=== PATIENT | male | born 2000 | race Caucasian/White ===

== ENCOUNTER 2018-07-05 14:09 | Outpatient (CLI) | payer OTHER, SELFPAY ==
[2018-07-06 12:21] LABS: HIV-1/2 Ag & Ab Screen Negative (NEGAT)
[2018-07-06 15:15] LABS: Chlamydia Result Negative; GC Result Negative; Specimen Description URINE
== END 2018-07-05 14:29 ==
PROVIDERS: PCP Pediatrics; Visit Provider Pediatrics
DX: R35.1 Nocturia (principal); N39.9 Disorder of urinary system, unspecified
CPT/HCPCS: 36415; 87389; 87491; 87591

== ENCOUNTER 2020-08-28 20:53 | Outpatient (REF) | payer OTHER, SELFPAY ==
[2020-08-28 20:55] LABS: HGB 14.6 g/dL (13.5-17.5); MCH 28.3 pg (27.0-33.0); MCHC 33.2 % (32.0-36.0); MCV 85.4 fL (80-95); MPV 10.8 fL (8.0-11.0); Platelet Count 246 10^3/uL (130-400); RBC 5.15 10^6/uL (4.36-5.78); RDW 12.2 % (11.8-14.1); RDW-SD 38.2 fL; WBC 5.79 10^3/uL (4.4-10.8)
[2020-08-28 21:35] LABS: ALT 24 U/L (16-63); AST 22 U/L (15-37); Albumin 4.7 g/dL (3.4-5.0); Alkaline Phosphatase 64 U/L (46-116); BUN 9 mg/dL (7-18); Bilirubin, Total 0.7 mg/dL (0.2-1.0); CREATININE 0.9 mg/dL (0.70-1.30); Calcium 9.1 mg/dL (8.5-10.1); Chloride 102 mmol/L (98-107); Glucose 86 mg/dL (74-106); Potassium 3.8 mmol/L (3.5-5.1); Sodium 140 mmol/L (136-145); TSH (W/Ref FT4) 1.16 uIU/mL (0.36-3.74); Total Protein 8.1 g/dL (6.4-8.2)
== END 2020-08-28 20:54 | disposition home or self-care (01) ==
LOC: NCHCN 20:53
PROVIDERS: Visit Provider Family Medicine
DX: F41.8 Other specified anxiety disorders (principal)
CPT/HCPCS: 80053; 85027; 84443

== ENCOUNTER 2022-02-08 16:53 | Outpatient (REF) | payer OTHER, SELFPAY ==
[2022-02-10 12:10] LABS: COVID-19 RT-PCR UVMMC Result Negative (Negative)
== END 2022-02-08 16:54 | disposition home or self-care (01) ==
LOC: NCHCN 16:53
PROVIDERS: Visit Provider Nurse Practitioner Family
DX: Z20.822 Contact with and (suspected) exposure to COVID-19 (principal); J02.9 Acute pharyngitis, unspecified
CPT/HCPCS: U0003

== ENCOUNTER 2023-06-04 22:10 | Emergency (ER) | payer OTHER, SELFPAY ==
[2023-06-04 22:13] VITALS: BP 128/58; PULSE 84; RESP 16; TEMP 36.6; O2SAT 100
--- NOTE | 2023-06-04 22:13 | ED.GENADUL_ITS ---
Discharge Plan Disposition Patient Disposition: Home Discharge Details Clinical Impression: Acute bacterial conjunctivitis of right eye Primary Care Provider: Unknown,Unknown ED Provider: Adin Luo Home Meds and New Rx's Prescriptions: New cyclopentolate 2 % drops 1 drp ophthalmic (eye) Q10M PRN3 Days Qty: 2 0RF moxifloxacin 0.5 % drops 1 drp ophthalmic (eye) TID 6 Days Qty: 3 0RF Rx Instructions: Please use drops every 2 hours, 2 drops each time for 2 days then every 6 hours 2 drops for 5 days No Action No Known Home Meds Discharge Instructions Instructions: Conjunctivitis (ED) Additional Instructions: You were seen in the emergency department for your eye pain. You received eyedrops which you should use 1 to 2 drops in your right eye every 2 hours for 2 days. Then use 1 to 2 drops every 6 hours for 5 days. A referral has been sent to the ophthalmology clinic at [facility] if you have worsening discomfort or you feel that your eyedrops are not working. Prescriptions for these antibiotic eyedrops have been sent to your pharmacy. There is also a prescription for a second drop which should improve your pain. If this drop is too expensive please disregard. Please return to the emergency department if you develop fevers with decreasing vision or have any other concerns. For your pain please take medications as follows: 1. Take acetaminophen (Tylenol), 1,000 mg (two 500 mg tabs) every 6 hours [2. Take ibuprofen (Advil), 400 mg every 6 hours.] HPI General Date/Time Provider Initiated Documentation: 06/04/23 22:13 . HPI Narrative: MDM This is an overall very well-appearing normothermic and not tachycardic 23-year-old contact lens wear with right eye conjunctivitis concerning for the possibility of bacterial conjunctivitis given recent URI symptoms last week for which patient will receive moxifloxacin drops given his contact lens use. No trauma to suggest corneal abrasion and no obvious uptake on fluorescein stain. Anterior chamber deep and quiet so my suspicion for iritis is exceedingly low. Furthermore patient has no history of autoimmune diseases. No signs of hyphema and no trauma. Negative Mell sign and given lack of trauma I have no suspicion for globe rupture. No new sexual partners to suggest chlamydial nor gonorrheal infection. No recent cataract surgery nor globe rupture nor foreign body to suggest endophthalmitis. No pain out of proportion to suggest necrotizing soft tissue infection. Based on patient's age and his anterior eye symptoms my suspicion for retinal detachment was exceedingly low as I did not complete a ocular ultrasound. I have asked health ammunition storekeeper Yumiko to have the patient seen by [facility] eye care in the next 1 to 2 days. Patient received his moxifloxacin drops in the ED. I have also sent drops to his pharmacy and have also sent a prescription for cyclopentolate to treat ciliary spasm. I advised ED return for any worsening pain decreasing vision or any other concerns. Otherwise we will proceed with an empiric trial of expectant outpatient management. Patient and I discussed refraining from contact lens use while treating his bacterial conjunctivitis. We also discussed good hand hygiene. Chronic conditions affecting the care of the patient: Contact lenses History obtained from an outside historian: N/A External record review: N/A Medications: Moxifloxacin drops, fluorescein, tetracaine Social determinants of health affecting disposition: N/A Management discussed with: N/A Treatment/interventions considered: N/A Response to therapies provided: N/A HPI This is a 23-year-old contact lens wearing male arrived to the emergency department via private vehicle in the setting of right eye irritation and d iscomfort that began this morning and progressively worsened throughout the day. Patient reports that he did not have any particular trauma to his eye. He has not been wearing his contact lenses today as a result of his discomfort. 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 He has tried flushing his eye tried warm compression and ice packs. These have not improved his symptoms. He denies any fevers. His eyes been watering but not itching. Patient reports that he had a URI I will week. He endorses photophobia. No prior history of similar symptoms. He does not have a history of autoimmune disease. No recent cataract surgeries. No new sexual partners. No recent ocular foreign bodies. Exam General: Mildly uncomfortable-appearing in no acute distress speaking in compl ete sentences. Head: Normocephalic, atraumatic. Eye:[Pupils equal, round reactive to light.] Extraocular eye movements intact. Right-sided conjunctival injection. No scleral icterus. On inspection right eye Lids and lashes appear intact with no signs of trauma. No uptake on fluorescein stain. On slit-lamp exam anterior chamber deep and quiet. No cells or flare. No hyphema. No obvious foreign body on eyelid eversion. Ear, nose, mouth, throat: Grossly normal inspection. Normal voice, handling secretions normally. Neck: Trachea midline. Cardiovascular: Well-perfused distal extremities. Respiratory: Nonlabored respiration. Gastrointestinal: Nondistended abdomen. Musculoskeletal: No edema. Moving all 4 extremities spontaneously. Skin: Normal for age and race, grossly normal temperature and turgor. No acute rash. Neurologic: Alert and appropriate, no apparent acute deficits. Psychiatric: Mood and manner are appropriate. Grooming and personal hygiene are appropriate. Related Data Home Medications Medication Instructions Recorded Confirmed Unknown [No Known Home Meds] 10/19/16 06/04/23 cyclopentolate 2 % eye drops 1 drp ophthalmic (eye) Q10M PRN 3 06/04/23 days #2 mL moxifloxacin 0.5 % eye drops 1 drp ophthalmic (eye) TID 6 days 06/04/23 #3 mL Previous Rx's Medication Instructions Recorded cyclopentolate 2 % eye drops 1 drp ophthalmic (eye) Q10M PRN 3 06/04/23 days #2 mL moxifloxacin 0.5 % eye drops 1 drp ophthalmic (eye) TID 6 days 06/04/23 #3 mL Allergies Allergy/AdvReac Type Severity Reaction Status Date / Time amoxicillin Allergy Intermediate hives Unverified 06/04/23 22:17 Sulfa (Sulfonamide Allergy Intermediate hives/rash Unverified 06/04/23 22:17 Antibiotics) Medical Decision Making Quality:SDOH Health Related Social Needs: No Data to Display PFSH All Active Problems (Updated 06/04/23 @ 22:40 by Adin Luo MD) Acute bacterial conjunctivitis of right eye (Acute) Anxiety (Chronic) Irritable bowel syndrome (Acute 03/12/12) pain, and gassiness w/exercise Multiple melanocytic nevus (Acute 01/20/16) Routine sports examination for healthy child or adolescent (Acute 03/12/12) Well adult health check (Acute 01/20/16) Medical History (Updated 06/04/23 @ 22:40 by Adin Luo MD) Dysplastic nevus of skin left lower leg-removed with biopsy showing some cancerous cells at age 1 years Wears contact lenses Snoring Surgical History (Updated 01/20/16 @ 20:26 by Bhumika Pillai RN) Excision, Skin Mass Circumcision Family History Grandfather Carcinoma of stomach Grandmother Malignant neoplasm of female breast Diabetes believe caused by chemotherapy Mother Asthma Social History Smoking/Tobacco Use Status: Never Smoking risk assessment performed?: Yes Alcohol Intake: current Alcohol Intake frequency: 0-2 drinks per day Alcohol type: beer Drug use: Daily Substance use type: marijuana Housing: house Do you feel safe at home: Yes Do you feel safe in your relationship?: Yes
[2023-06-04 22:22] VITALS: BP 128/58; PULSE 84; RESP 16; TEMP 36.6; O2SAT 100
[2023-06-04] MEDS: Fluorescein STRIPS 100/BOX 1 MG OP (22:30)
[2023-06-04] MEDS: Tetracaine 0.5% 4 ML BTL OP (22:30)
--- NOTE | 2023-06-04 22:54 | ED.FU.B_ITS ---
Date of service: 06/04/23 Time of Service: 22:54 Follow Up Plan: Visual acuity as reported by emergency department oxygen equipment technician GEN: Right eye 20/40, left eye 20/30, bilaterally 20/30.
--- NOTE | 2023-06-04 22:54 | W.ED.FU ---
Date of service: 06/04/23 Time of Service: 22:54 Follow Up Plan: Visual acuity as reported by emergency department pulmonary function technician GEN: Right eye 20/40, left eye 20/30, bilaterally 20/30.
[2023-06-04] MEDS: Moxifloxacin 0.5% 3 ML BTL OD (23:34)
--- NOTE | 2023-06-05 00:27 | NUR.NOTE ---
Pt placed on care management referral list to be seen at [facility] for bacterial conjunctivitis, to be seen SATYA
== END 2023-06-04 23:34 | disposition home or self-care (01) ==
LOC: ER 23:39
PROVIDERS: Emergency Provider Emergency Medicine
DX: H10.021 Other mucopurulent conjunctivitis, right eye (principal)
CPT/HCPCS: 99283

== ENCOUNTER 2024-11-08 21:59 | Outpatient (REF) | payer SELFPAY | END 2024-11-08 22:00 | disposition home or self-care (01) | LOC: LBN 21:59 | PROVIDERS: Visit Provider Physician Assistant Medical | DX: J02.9 Acute pharyngitis, unspecified (principal) | CPT/HCPCS: 87070 ==